=== PATIENT | male | born 1945 | race Caucasian/White ===

== ENCOUNTER 2017-04-20 21:51 | Inpatient (IN) | payer OTHER, BC ==
[~2017-04-20] VITALS: Ht 170.2 cm; Wt 96.0 kg
[~2017-04-20 21:51] MED LIST: AMB5 PO; AMLODIPINE5 M1 PO; BG MC; COL100 PO; DEXPF IV; ECO81 PO; FLO4 PO; GLU500 PO; HUMULIN R100 U/1 M1 SC; LAC PO; LEVAQUIN750 MG/150 IV; LIPI20 PO; MOR2I IV; MYL80 CH; NIT0.4 SL; OMEPRAZOLE40 M1 PO; THERAGRAN-M1 TA4 PO; TYL325 PO; ZOFI IM
[2017-04-20 22:57] LABS: PLATELET COUNT 242 x10^3mcL (130-400)
[2017-04-20 23:00] LABS: UA SPECIFIC GRAVITY >=1.030 (1.005-1.035); microscopic required? YES; urine erythrocyte NEGATIVE (NEGATIVE)
[2017-04-20 23:03] LABS: ALKALINE PHOSPHATASE 118 U/L (46-116); ALT/SGPT 21 U/L (16-63); AST/SGOT 26 U/L (15-37); BILIRUBIN TOTAL 0.41 mg/dL (0.20-1.00); CALCIUM 8.1 mg/dL (8.5-10.1); CARBON DIOXIDE 20.5 mmol/L (21-32); CHLORIDE SERUM 90 mmol/L (98-107); CREATININE SERUM 1.2 mg/dL (0.7-1.3); GLUCOSE SERUM 189 mg/dL (74-106); SODIUM SERUM 125 mmol/L (136-145); TOTAL PROTEIN, SERUM 6.2 g/dL (6.4-8.2)
[2017-04-20 23:07] LABS: ALBUMIN 2.3 g/dL (3.4-5.0); CHOLESTEROL 127 mg/dL (<200); HDL CHOLESTEROL 31 mg/dL (40-60); RED CELL DISTRIBUTION WIDTH 21.4 % (11.5-14.5)
[2017-04-20 23:08] LABS: POTASSIUM SERUM 5.7 mmol/L (3.5-5.1)
[2017-04-20] MEDS ORDERED: ZOMETA4 MG/5 ML IV (23:14)
[2017-04-20] MEDS ORDERED: SENNA8.6 M2 PO (23:14)
[2017-04-20] MEDS ORDERED: ALDACTONE25 MG PO (23:14)
[2017-04-20] MEDS ORDERED: TECENTRIQ1200 MG/20 IV (23:15)
[2017-04-21] VITALS (19 sets, daily range): BP systolic 76–105; BP diastolic 45–61
[2017-04-21 00:33] LABS: BAND NEUTROPHIL 11 % (0-10); METAMYELOCTE 5 % (0-2); MONOCYTE 3 % (0-7); MYELOCYTE 1 % (0-2); SEGMENTED NEUTROPHILS 73 % (37-75)
[2017-04-21 00:35] LABS: rbc morphology (normal/abnorm) ABNORMAL (NORMAL)
[2017-04-21 00:36] LABS: PLATELET MORPHOLOGY FEW PL.CLUMPS
[2017-04-21 03:23] LABS: PHOSPHOROUS 4.4 mg/dL (2.5-4.9)
[2017-04-21 03:24] LABS: CHOLESTEROL/HDL RATIO 3.9; T3 TOTAL 0.63 ng/mL
[2017-04-21 03:32] LABS: FREE T4 1.11 ng/dL (0.76-1.46); FREE THYROXINE INDEX 2.2 ug/dL (1.4-4.5); T4(THYROXINE) 6.4 ug/dL (4.7-13.3)
[2017-04-21 06:03] LABS: CALCIUM 6.8 mg/dL (8.5-10.1); CARBON DIOXIDE 21.5 mmol/L (21-32); CHLORIDE SERUM 97 mmol/L (98-107); GLUCOSE SERUM 209 mg/dL (74-106); MAGNESIUM 1.8 mg/dL (1.8-2.4); PHOSPHOROUS 3.9 mg/dL (2.5-4.9); SODIUM SERUM 127 mmol/L (136-145)
[2017-04-21 06:09] LABS: PLATELET COUNT 226 x10^3mcL (130-400)
[2017-04-21 08:56] LABS: RED CELL DISTRIBUTION WIDTH 20.9 % (11.5-14.5)
[2017-04-21 09:04] LABS: BAND NEUTROPHIL 10 % (0-10); MONOCYTE 4 % (0-7); SEGMENTED NEUTROPHILS 81 % (37-75); rbc morphology (normal/abnorm) ABNORMAL (NORMAL)
[2017-04-22] VITALS (18 sets, daily range): BP systolic 85–126; BP diastolic 43–74
[2017-04-22 05:40] LABS: PLATELET COUNT 216 x10^3mcL (130-400)
[2017-04-22 05:50] LABS: CHLORIDE SERUM 94 mmol/L (98-107); CREATININE SERUM 1.1 mg/dL (0.7-1.3); GLUCOSE SERUM 285 mg/dL (74-106); PHOSPHOROUS 2.6 mg/dL (2.5-4.9); POTASSIUM SERUM 5.1 mmol/L (3.5-5.1)
[2017-04-22 05:57] LABS: SODIUM SERUM 123 mmol/L (136-145)
[2017-04-22 06:03] LABS: RED CELL DISTRIBUTION WIDTH 21.5 % (11.5-14.5)
[2017-04-22 06:26] LABS: MONOCYTE 1 % (0-7); SEGMENTED NEUTROPHILS 86 % (37-75)
[2017-04-22 06:27] LABS: BAND NEUTROPHIL 7 % (0-10); BASOPHIL 0 % (0-2); PLATELET MORPHOLOGY PLATELETS NORMAL; rbc morphology (normal/abnorm) ABNORMAL (NORMAL)
[2017-04-23] VITALS (17 sets, daily range): BP systolic 79–125; BP diastolic 49–70
[2017-04-23 05:31] LABS: PLATELET COUNT 193 x10^3mcL (130-400)
[2017-04-23 05:44] LABS: RED CELL DISTRIBUTION WIDTH 21.3 % (11.5-14.5)
[2017-04-23 05:53] LABS: BAND NEUTROPHIL 5 % (0-10); METAMYELOCTE 2 % (0-2); MONOCYTE 5 % (0-7); SEGMENTED NEUTROPHILS 79 % (37-75)
[2017-04-23 05:59] LABS: CARBON DIOXIDE 14.2 mmol/L (21-32); CHLORIDE SERUM 88 mmol/L (98-107); CREATININE SERUM 0.8 mg/dL (0.7-1.3); PLATELET MORPHOLOGY PLATELETS NORMAL; POTASSIUM SERUM 3.2 mmol/L (3.5-5.1); rbc morphology (normal/abnorm) ABNORMAL (NORMAL); tear drop cell (dacryocyte) 1+
[2017-04-23 06:24] LABS: GLUCOSE SERUM 745 mg/dL (74-106); SODIUM SERUM 113 mmol/L (136-145)
[2017-04-23 06:25] LABS: CALCIUM 4.7 mg/dL (8.5-10.1)
[2017-04-23 09:40] LABS: POTASSIUM SERUM 4.9 mmol/L (3.5-5.1); SODIUM SERUM 126 mmol/L (136-145)
[2017-04-23 09:41] LABS: CALCIUM 6.9 mg/dL (8.5-10.1); CARBON DIOXIDE 20.3 mmol/L (21-32); CHLORIDE SERUM 95 mmol/L (98-107); CREATININE SERUM 1.1 mg/dL (0.7-1.3); GLUCOSE SERUM 206 mg/dL (74-106)
[2017-04-23 09:53] LABS: RED CELL DISTRIBUTION WIDTH 20.5 % (11.5-14.5)
[2017-04-23 09:54] LABS: PLATELET COUNT 243 x10^3mcL (130-400)
[2017-04-23 12:09] LABS: BAND NEUTROPHIL 7 % (0-10); BASOPHIL 0 % (0-2); MONOCYTE 1 % (0-7); SEGMENTED NEUTROPHILS 86 % (37-75)
[2017-04-23 12:10] LABS: PLATELET MORPHOLOGY PLATELETS NORMAL; rbc morphology (normal/abnorm) ABNORMAL (NORMAL)
[2017-04-23 17:09] LABS: SOURCE FLUID THORACENTESIS
[2017-04-23 23:17] LABS: APPEARANCE FLUID HAZY; COLOR FLUID YELLOW; SOURCE FLUID THORACENTESIS
[2017-04-23 23:20] LABS: RBC FLUID 1503 /cumm; WBC FLUID 147 /cumm
[2017-04-23 23:28] LABS: LYMPHOCYTE FLUID 7 %; MONOCYTE FLUID 8 %
[2017-04-24] VITALS (17 sets, daily range): BP systolic 84–107; BP diastolic 49–67
[2017-04-24 05:21] LABS: PLATELET COUNT 201 x10^3mcL (130-400)
[2017-04-24 05:59] LABS: CALCIUM 6.8 mg/dL (8.5-10.1); CARBON DIOXIDE 19.6 mmol/L (21-32); CHLORIDE SERUM 97 mmol/L (98-107); CREATININE SERUM 0.8 mg/dL (0.7-1.3); GLUCOSE SERUM 255 mg/dL (74-106); POTASSIUM SERUM 4.9 mmol/L (3.5-5.1); SODIUM SERUM 128 mmol/L (136-145)
[2017-04-24 06:12] LABS: ATYPICAL LYMPH 1 %; BAND NEUTROPHIL 5 % (0-10); METAMYELOCTE 3 % (0-2); MONOCYTE 7 % (0-7); MYELOCYTE 1 % (0-2); SEGMENTED NEUTROPHILS 80 % (37-75)
[2017-04-24 06:13] LABS: rbc morphology (normal/abnorm) ABNORMAL (NORMAL)
[2017-04-24 06:14] LABS: PLATELET MORPHOLOGY PLATELETS NORMAL; tear drop cell (dacryocyte) 1+
[2017-04-25] VITALS (17 sets, daily range): BP systolic 83–130; BP diastolic 47–81
[2017-04-25 05:13] LABS: PLATELET COUNT 175 x10^3mcL (130-400)
[2017-04-25 05:16] LABS: RED CELL DISTRIBUTION WIDTH 22.4 % (11.5-14.5)
[2017-04-25 05:20] LABS: CALCIUM 7.3 mg/dL (8.5-10.1); CARBON DIOXIDE 19.5 mmol/L (21-32); CHLORIDE SERUM 99 mmol/L (98-107); GLUCOSE SERUM 260 mg/dL (74-106); POTASSIUM SERUM 4.1 mmol/L (3.5-5.1); SODIUM SERUM 128 mmol/L (136-145)
[2017-04-25 05:44] LABS: ATYPICAL LYMPH 1 %; BAND NEUTROPHIL 18 % (0-10); METAMYELOCTE 6 % (0-2); MONOCYTE 3 % (0-7); MYELOCYTE 3 % (0-2); PLATELET MORPHOLOGY PLATELETS NORMAL; SEGMENTED NEUTROPHILS 61 % (37-75); ovalocyte/elliptocyte 1+; rbc morphology (normal/abnorm) ABNORMAL (NORMAL)
[2017-04-26] VITALS (19 sets, daily range): BP systolic 83–112; BP diastolic 48–65; Ht 170.2 cm; Wt 96.0 kg
[2017-04-26 05:39] LABS: CALCIUM 7.4 mg/dL (8.5-10.1); CARBON DIOXIDE 22.1 mmol/L (21-32); CHLORIDE SERUM 98 mmol/L (98-107); CREATININE SERUM 0.9 mg/dL (0.7-1.3); GLUCOSE SERUM 194 mg/dL (74-106); POTASSIUM SERUM 4.6 mmol/L (3.5-5.1); SODIUM SERUM 129 mmol/L (136-145)
[2017-04-26 05:45] LABS: PLATELET COUNT 167 x10^3mcL (130-400)
[2017-04-26 05:54] LABS: RED CELL DISTRIBUTION WIDTH 22.6 % (11.5-14.5)
[2017-04-26 06:10] LABS: BAND NEUTROPHIL 8 % (0-10); BASOPHIL 0 % (0-2); METAMYELOCTE 1 % (0-2); MONOCYTE 6 % (0-7); MYELOCYTE 2 % (0-2); SEGMENTED NEUTROPHILS 75 % (37-75)
[2017-04-26 06:13] LABS: PLATELET MORPHOLOGY PLATELETS NORMAL; ovalocyte/elliptocyte 1+; rbc morphology (normal/abnorm) ABNORMAL (NORMAL)
[2017-04-26 20:05] LABS: SOURCE FLUID PLEURAL
[2017-04-26 20:06] LABS: APPEARANCE FLUID CLOUDY; COLOR FLUID RED; LYMPHOCYTE FLUID 38 %; MONOCYTE FLUID 8 %; RBC FLUID 60560 /cumm; WBC FLUID 375 /cumm
[2017-04-27] VITALS (14 sets, daily range): BP systolic 77–104; BP diastolic 42–65
[2017-04-27 04:48] LABS: PLATELET COUNT 164 x10^3mcL (130-400)
[2017-04-27 05:04] LABS: CARBON DIOXIDE 20.4 mmol/L (21-32); CHLORIDE SERUM 98 mmol/L (98-107); GLUCOSE SERUM 255 mg/dL (74-106); POTASSIUM SERUM 5.1 mmol/L (3.5-5.1); SODIUM SERUM 130 mmol/L (136-145)
[2017-04-27 05:11] LABS: ALBUMIN 1.2 g/dL (3.4-5.0)
[2017-04-27 05:19] LABS: RED CELL DISTRIBUTION WIDTH 23.1 % (11.5-14.5)
[2017-04-27 06:03] LABS: ATYPICAL LYMPH 1 %; BAND NEUTROPHIL 14 % (0-10); METAMYELOCTE 5 % (0-2); MONOCYTE 3 % (0-7); MYELOCYTE 2 % (0-2); SEGMENTED NEUTROPHILS 66 % (37-75); rbc morphology (normal/abnorm) ABNORMAL (NORMAL)
[2017-04-27 06:04] LABS: tear drop cell (dacryocyte) 1+
[2017-04-27 06:05] LABS: PLATELET MORPHOLOGY FEW LARGE PLATELETS
[2017-04-28] VITALS (18 sets, daily range): BP systolic 10–111; BP diastolic 33–71
[2017-04-28 05:42] LABS: PLATELET COUNT 149 x10^3mcL (130-400)
[2017-04-28 05:47] LABS: RED CELL DISTRIBUTION WIDTH 23.3 % (11.5-14.5)
[2017-04-28 05:53] LABS: CALCIUM 7.4 mg/dL (8.5-10.1); CARBON DIOXIDE 22.7 mmol/L (21-32); CHLORIDE SERUM 98 mmol/L (98-107); CREATININE SERUM 1.5 mg/dL (0.7-1.3); GLUCOSE SERUM 301 mg/dL (74-106); POTASSIUM SERUM 5.2 mmol/L (3.5-5.1); SODIUM SERUM 131 mmol/L (136-145)
[2017-04-28 06:12] LABS: ATYPICAL LYMPH 1 %; BAND NEUTROPHIL 7 % (0-10); METAMYELOCTE 7 % (0-2); MONOCYTE 4 % (0-7); MYELOCYTE 2 % (0-2); SEGMENTED NEUTROPHILS 71 % (37-75)
[2017-04-28 06:13] LABS: rbc morphology (normal/abnorm) ABNORMAL (NORMAL)
[2017-04-28 06:14] LABS: PLATELET MORPHOLOGY FEW LARGE PLATELETS
[2017-04-28 12:39] LABS: PLATELET COUNT 168 x10^3mcL (130-400)
[2017-04-28 12:42] LABS: RED CELL DISTRIBUTION WIDTH 23.3 % (11.5-14.5)
[2017-04-28 12:58] LABS: CALCIUM 7.4 mg/dL (8.5-10.1); CHLORIDE SERUM 99 mmol/L (98-107); CREATININE SERUM 1.7 mg/dL (0.7-1.3); GLUCOSE SERUM 289 mg/dL (74-106); SODIUM SERUM 133 mmol/L (136-145)
[2017-04-28 13:31] LABS: BASOPHIL 0 % (0-2); MONOCYTE 4 % (0-7); MYELOCYTE 1 % (0-2)
[2017-04-28 13:32] LABS: BAND NEUTROPHIL 9 % (0-10); SEGMENTED NEUTROPHILS 80 % (37-75)
[2017-04-28 13:33] LABS: PLATELET MORPHOLOGY PLATELETS NORMAL; rbc morphology (normal/abnorm) ABNORMAL (NORMAL)
[2017-04-29] VITALS (11 sets, daily range): BP systolic 62–163; BP diastolic 43–122
[2017-04-29 02:56] LABS: PLATELET COUNT 156 x10^3mcL (130-400)
[2017-04-29 03:10] LABS: CALCIUM 6.8 mg/dL (8.5-10.1); CARBON DIOXIDE 17.7 mmol/L (21-32); CHLORIDE SERUM 95 mmol/L (98-107); CREATININE SERUM 2.1 mg/dL (0.7-1.3); GLUCOSE SERUM 314 mg/dL (74-106); POTASSIUM SERUM 4.8 mmol/L (3.5-5.1); SODIUM SERUM 129 mmol/L (136-145)
[2017-04-29 03:11] LABS: RED CELL DISTRIBUTION WIDTH 23.6 % (11.5-14.5)
[2017-04-29 03:35] LABS: BAND NEUTROPHIL 11 % (0-10); METAMYELOCTE 6 % (0-2); MONOCYTE 4 % (0-7); MYELOCYTE 1 % (0-2); PLATELET MORPHOLOGY LARGE PLATELET SEEN; SEGMENTED NEUTROPHILS 71 % (37-75); rbc morphology (normal/abnorm) ABNORMAL (NORMAL); tear drop cell (dacryocyte) 1+
[2017-04-29 10:05] LABS: CALCIUM 7.1 mg/dL (8.5-10.1); CARBON DIOXIDE 12.8 mmol/L (21-32); CHLORIDE SERUM 95 mmol/L (98-107); CREATININE SERUM 2.4 mg/dL (0.7-1.3); GLUCOSE SERUM 350 mg/dL (74-106); MAGNESIUM 2.1 mg/dL (1.8-2.4); PHOSPHOROUS 5.7 mg/dL (2.5-4.9); SODIUM SERUM 126 mmol/L (136-145)
[2017-04-29 10:11] LABS: POTASSIUM SERUM 6.7 mmol/L (3.5-5.1)
== END 2017-04-29 16:15 | disposition expired | DRG 870 ==
LOC: ED 21:51 → IC 23:00 → DU 23:00 → IC 23:00 → DU 04-21 00:39 → IC 04-21 00:39 → DU 04-21 04:24 → IC 04-21 04:42
PROVIDERS: Emergency Medicine; Family Medicine; Internal Medicine; ADMIT Family Medicine
PROC: 0BH17EZ Insertion of Endotracheal Airway into Trachea, Via Natural or Artificial Opening (ICD-10-PCS; 2017-04-20)
PROC: 5A1955Z Respiratory Ventilation, Greater than 96 Consecutive Hours (ICD-10-PCS; principal; 2017-04-21)
PROC: 0W9B30Z Drainage of Left Pleural Cavity with Drainage Device, Percutaneous Approach (ICD-10-PCS; 2017-04-22)
PROC: 0BJ08ZZ Inspection of Tracheobronchial Tree, Via Natural or Artificial Opening Endoscopic (ICD-10-PCS; 2017-04-23)
PROC: 0W9B30Z Drainage of Left Pleural Cavity with Drainage Device, Percutaneous Approach (ICD-10-PCS; 2017-04-26)
PROC: 0W9930Z Drainage of Right Pleural Cavity with Drainage Device, Percutaneous Approach (ICD-10-PCS; 2017-04-29)
DX: A41.9 Sepsis, unspecified organism (principal); J96.01 Acute respiratory failure with hypoxia; N17.0 Acute kidney failure with tubular necrosis; E43 Unspecified severe protein-calorie malnutrition; J69.0 Pneumonitis due to inhalation of food and vomit; R65.21 Severe sepsis with septic shock; C34.90 Malignant neoplasm of unspecified part of unspecified bronchus or lung; J90 Pleural effusion, not elsewhere classified; C79.51 Secondary malignant neoplasm of bone; E87.1 Hypo-osmolality and hyponatremia; D68.69 Other thrombophilia; E11.59 Type 2 diabetes mellitus with other circulatory complications; E11.65 Type 2 diabetes mellitus with hyperglycemia; E87.5 Hyperkalemia; E78.5 Hyperlipidemia, unspecified; K21.9 Gastro-esophageal reflux disease without esophagitis; Z68.30 Body mass index [BMI] 30.0-30.9, adult; Z95.0 Presence of cardiac pacemaker; Z79.84 Long term (current) use of oral hypoglycemic drugs; Z79.4 Long term (current) use of insulin; Z79.82 Long term (current) use of aspirin; Z66 Do not resuscitate
CPT/HCPCS: 31500; 31645; 32555; 36556; 36600; 82962; 83880; 84439; 88344; A4628; A7042; C1729; C9113; J0696; J1450; J1642; J1720; J1815; J1940; J1956; J2001; J2060; J2250; J2270; J2370; J2405; J2543; J2704; J3010; J3370; J3490; J7030; J7040; J7050; J7620; J8597; Q0092